=== PATIENT | male | born 1945 ===

== ENCOUNTER 2020-02-11 11:27 | Emergency (ER) | payer MEDICARE, OTHER ==
[~2020-02-11 11:27] MED LIST: Atropine Sulfate 1 mg/10 ml Syringe ONE; Calcium Chloride 1 GM/10 ML Abboject SYRINGE ONE; EPINEPHrine 1 MG/10 ML Abboject SYRINGE ONE
[2020-02-11] MEDS ORDERED: Rocuronium Bromide 10 MG/ML (10ML VIAL) ONE (11:41)
[2020-02-11] MEDS ORDERED: EPINEPHrine 1 MG/10 ML Abboject SYRINGE ONE ×2 (12:27→14:53)
[2020-02-11] MEDS ORDERED: EPINEPHrine 1 MG/ML AMP ONE (12:27)
[2020-02-11] MEDS ORDERED: Norepinephrine 8 MG/0.9% NS 250 ML ONE (12:52)
[2020-02-11 13:01] LABS: Hemoglobin 12.9 g/dL (14.0-18.0); Mean Corpuscular HGB CONC 31.6 g/dL (32.0-36.0); Mean Corpuscular Volume 94.8 fL (78.0-98.0); Mean Platelet Volume 9.6 fL (7.4-10.4); Platelet Count 205 thou/uL (130-400); RBC Distribution Width 13.8 % (11.5-14.5)
[2020-02-11 13:23] LABS: Band 22 % (5-11); Burr Cells SLIGHT = 2-5 cells (100X) (0-1/hpf); Lymphocytes 22 % (21-51); MDiff Complete? YES; Metamyelocyte 3 % (0-0); Monocytes 5 % (0-10); Myelocyte 2 % (0-0); Neutrophil 46 % (42-75); Nucleated RBC 5 % (0); Platelet Morphology Comment Appears Adequate; Polychromasia SLIGHT = 2-3 cells (100X) (0-2/hpf); Vacuoles SLIGHT; White Blood Cell (WBC) Count 14.3 thou/uL (4.8-10.8)
[2020-02-11 13:28] LABS: ALT (SGPT) 120 U/L (8-55); AST (SGOT) 112 U/L (5-34); Albumin 2.7 g/dL (3.4-4.8); Alkaline Phosphatase 104 U/L (40-110); Anion Gap 39 mmol/L (10-20); BUN (Urea Nitrogen) 104 mg/dL (8.4-25.7); Bilirubin, Total 0.4 mg/dL (0.2-1.2); Calc. Creatinine Clearance 0 mL/min (70-130); Carbon Dioxide 11 mmol/L (23-31); Chloride 99 mmol/L (98-107); Estimated GFR-MDRD 8; Globulin 2.7 g/dL (2.4-3.5); Glucose 111 mg/dL (83-110); Lipase 52 U/L (8-78); Magnesium 3.9 mg/dL (1.6-2.6); Potassium 5.5 mmol/L (3.5-5.1); Protein, Total 5.4 g/dL (5.8-8.1); Sodium 143 mmol/L (136-145)
[2020-02-11] MEDS ORDERED: Pantoprazole 40 MG VIAL ONE (13:28)
[2020-02-11] MEDS ORDERED: Pantoprazole 80 MG, Admixture Fee 1 EACH in Sodium Chloride 0.9% 100 ML IVPB SCH (13:30)
[2020-02-11 13:33] LABS: Calcium 13.1 mg/dL (7.8-10.44)
[2020-02-11 13:41] LABS: Actual Bicarbonate (HCO3a) 6.1 mEq/L (22-28); Analyzer IN Cardio ER; Base Excess (BEa) -28.1 mEq/L (-2.0 to +3.0); CO2 Tension 38.4 mmHg (35.0-45.0); Calcium, Ionized (arterial) 1.23 mmol/L (1.12-1.30); Hemoglobin (Hb) 14.8 g/dL (14.0-18.0); O2 Tension (PaO2), arterial 96.6 mmHg (> 70.0); Potassium - ABG Lab 6.01 mmol/L (3.70-5.30)
[2020-02-11] MEDS ORDERED: Octreotide Acetate 1,250 MCG in Sodium Chloride 0.9% 250 ML 250 ML IVPB SCH (13:45)
[2020-02-11 13:54] LABS: CKMB 14.7 ng/mL (0-6.6)
[2020-02-11 13:57] LABS: Puncture Site L.B.; pH, Arterial 6.82 (7.35-7.45)
--- NOTE | 2020-02-11 14:14 | RAD ---
PORTABLE CHEST: 02/11/20 INDICATIONS: Respiratory distress. COMPARISON: 12/06/19. FINDINGS: ET tube and NG tube are in place. ET tube is at the level above the jodi. There is new confluent infiltrate in the right perihilar region extending to the right mid lung and i nto the right lower lobe. Hazy atelectasis and/or infiltrate in the left lung base. Small bilateral e ffusions. Probably some hazy infiltrate in the left upper lobe as well. IMPRESSION: Bilateral infiltrates more extensive on the right with small bilateral effusions. These are new findi ngs when compared to 12/06/19. POS: AGW
[2020-02-11] MEDS ORDERED: Cefepime 2 GM VIAL ONE (14:27)
[2020-02-12 12:36] LABS: SARS-CoV-2 MS2 Positive; SARS-CoV-2 N Gene Negative; SARS-CoV-2 S Gene Negative; SARS-CoV-2 by NAA Not Detected (NotDetected); SARS-CoV-2 orf1ab Negative
== END 2020-02-11 14:55 | disposition expired ==
LOC: ERS 11:27
DX: I46.9 Cardiac arrest, cause unspecified (principal); K92.2 Gastrointestinal hemorrhage, unspecified; Z20.828 Contact with and (suspected) exposure to other viral communicable diseases; J43.9 Emphysema, unspecified; I10 Essential (primary) hypertension
CPT/HCPCS: 31500; 36430; 71045; 80053; 82553; 82805; 83605; 83690; 83735; 84484; 85025; 86850; 86900; 86901; 86920; 87040 ×2; 87077; 87186; 93005; 94002; P9016; P9035; P9048; P9059; U0003; 36556; 51702; 87635; 92950; 96365; 96366; 96367; 96368; 96374; 96375; 96376; 99292; C9113; J0171; J0461; J0692; J2354; J3490; J7050